=== PATIENT | female | born 1985 | race Caucasian/White ===

== ENCOUNTER 2018-06-02 11:22 | Inpatient (IN) ==
[2018-06-02] MEDS ORDERED: Gadobutrol PF 7.5 MMOL/7.5 ML Vial (for RAD) IV.SIG ONE (11:23)
[2018-06-02] MEDS ORDERED: Morphine Sulfate Inj 8 MG/ML Vial IV.PUSH ONE (12:03)
[2018-06-02] MEDS ORDERED: Morphine Inj 4 MG/ML Vial IV.PUSH ONE (12:15)
[2018-06-02] MEDS ORDERED: Sod Chloride 0.9% Inj 1,000 ML IV.SIG SCH ×3 (12:15→13:15)
[2018-06-02] MEDS ORDERED: Ketorolac Inj 30 MG/ML (IVP) Vial IV.PUSH ONE (12:16)
--- NOTE | 2018-06-02 12:17 | ED ---
HPI General Chief complaint: Back Pain/Injury Stated complaint: back/hip pain Time Seen by Provider: 06/02/18 11:54 Source: patient Mode of arrival: ambulatory Limitations: no limitations History of Present Illness HPI narrative: 33-year-old female that presents to the ED for evaluation of not feeling well. Per patient she has been having lower abdominal pain and pain to her hips that feels like an ache and coldness as well as to weakness to her lower legs that has been ongoing for 3 days. 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 She does a lot of heavy lifting. She does state that she has a history of substance abuse but does not do IV drugs. Per patient she has been using Percocet and marijuana. She took some Percocet to help alleviate the pain with some relief but she continues to have symptoms. Per patient today she started having chills and sweats. She was concerned because she is has a little difficulty walking secondary to discomfort to her lower back. She does not know if this is a kidney infection or this is something related to her back. She denies ever having surgeries to her back. No injuries to her back. No history of sepsis or MRSA. Denies again any IV drug abuse although she does use drugs. No chest pain or shortness of breath. No cough or runny nose. No bowel movement issues. Pain per patient is 8 out of 10. Related Data Home Medications Medication Instructions Recorded Confirmed No Known Home Medications 06/02/18 06/02/18 Allergies Allergy/AdvReac Type Severity Reaction Status Date / Time No Known Allergies Allergy Verified 06/02/18 11:46 Review of Systems ROS: all other systems reviewed are negative [facility] Medical History Medical History No pertinent past medical history (Acute) No significant past surgical history (Acute) Family History Family History Other Osteoarthritis Social History Social History Substance History: Active Abuse Second Hand Smoke Exposure: Yes Smoking Status: Current every day smoker Tobacco Type: Cigarettes How Often Do You Have a Drink Containing Alcohol: Monthly or less Recent Travel in [facility] within the Last 8 Weeks: No Recent Out of Country Travel within the Last 8 Weeks: No Substance Abuse Detail Marijuana: Substance Use Status: Active Route Used Substance Abuse: By Mouth Reason for Use: Calm Down Immunization History Tetanus Immunization: >5 Years Exam Narrative Exam Narrative: GENERAL: well appearing in some discomfort SKIN: Focused skin assessment warm/dry. HEAD: Atraumatic. Normocephalic. EYES: Pupils equal and round. No scleral icterus. No injection or drainage. ENT: No nasal bleeding or discharge. Mucous membranes pink and moist. Tongue is midline. No uvula deviation. NECK: Trachea midline. No JVD. CARDIOVASCULAR: Regular rate and rhythm. No murmur appreciated. RESPIRATORY: No accessory muscle use. Clear to auscultation. Breath sounds equal bilaterally. GASTROINTESTINAL: Abdomen soft, non-tender, nondistended. Hepatic and splenic margins not palpable. MUSCULOSKELETAL: No obvious deformities. No clubbing. No cyanosis. No edema. Full ROm of the upper and lower extremities bilaterally. 2+ pulses. has an erythematous rash on the lower legs, following the veins. Pain with any ROM of the lower back. No thoracic or cervical spine tenderness. Some lumbar spine tenderness to palpation. NEUROLOGICAL: Awake and alert. No obvious cranial nerve deficits. Motor grossly within normal limits. Normal speech. PSYCHIATRIC: Appropriate mood and affect; insight and judgment normal. Course Initial Documented Vital Signs Temperature 99.8 F H 06/02/18 11:32 Pulse Rate 122 H 06/02/18 11:32 Respiratory Rate 24 06/02/18 11:32 Blood Pressure 164/98 H 06/02/18 11:32 Pulse Oximetry 100 06/02/18 11:32 Last Documented Vital Signs Temperature 98.6 F 06/02/18 15:00 Pulse Rate 108 H 06/02/18 15:00 Respiratory Rate 20 06/02/18 15:00 Blood Pressure 130/81 06/02/18 15:00 Pulse Oximetry 99 06/02/18 15:00 Medical Decision Making [facility] Narrative Medical decision making narrative: 33-year-old female that presents to the ED for evaluation of weakness and lower leg pain. Patient was properly examined and was found to have signs and symptoms consistent with appears to be possible osteomyelitis. Patient has a history of drug use but denies any other drug abuse. She is tachycardic and she does have a slight fever. She does not appear to be weak on her legs but she does have a lot of pain in her lower back. The recommend MRI and blood work. Patient was given pain medication IV as well as fluids. Patient was started on sepsis protocol. Case discussed with my attending agrees with plan. Labs and imaging showed no sign of osteomyelitis although she does have some herniated disc. However CT scan did show what appears to be pyelonephritis and significant UTI as well as what appears to be sepsis secondary to pyelonephritis. Condition at this time is for admission for further evaluation and treatment. My attending herself already had started the patient on vancomycin and Zosyn to cover for possible osteo-. Patient agrees with admission. Case discussed with my attending Dr. Gonzalez who agrees to admission. Case discussed with Dr. Lundy who agrees admission to his service. Medical Screen Exam Complete: Yes Emergency Medical Condition: Yes Differential Diagnosis Differential Diagnosis: Sepsis vs osteomyelitis vs pylonephritis vs UTI vs bacteremia Medical Records Medical records reviewed: Yes I reviewed the patient's medical records. Lab Data Lab results reviewed: Yes I reviewed the patient's lab results. Result diagrams: 06/02/18 12:55 06/02/18 12:55 POC Results POC Urine Results Negative Lab Results 06/02/18 06/02/18 06/02/18 Range/Units 12:25 12:33 12:55 WBC (4.0-11.0) th/mm3 RBC (4.00-5.30) mil/mm3 Hgb (11.6-15.3) gm/dL Hct (35.0-46.0) % MCV (80.0-100.0) fL MCH (27.0-34.0) pg MCHC (32.0-36.0) % RDW (11.6-17.2) % Plt Count (150-450) th/mm3 MPV (7.0-11.0) fL Prelim Diff (Auto) Neut % (Auto) (16.0-70.0) % Lymph % (Auto) (9.0-44.0) % Wood % (Auto) (0.0-8.0) % Eos % (Auto) (0.0-4.0) % Baso % (Auto) (0.0-2.0) % Neut # (Auto) (1.8-7.7) th/mm3 Lymph # (Auto) (1.0-4.8) th/mm3 Wood # (Auto) (0.0-0.9) th/mm3 Eos # (Auto) (0.0-0.4) th/mm3 Baso # (Auto) (0.0-0.2) th/mm3 WBC Differential Seg Neuts % (Manual) (16-70) % Band Neuts % (Manual) (0-6) % Lymphocytes % (Manual) (9-44) % Monocytes % (Manual) (0-8) % Abs Neuts (Manual) (1.8-7.7) th/mm3 Differential Comment Platelet Estimate (Normal) Platelet Morphology (Normal) Sodium (136-145) meq/L Potassium (3.5-5.1) meq/L Chloride (98-107) meq/L Carbon Dioxide (21.0-32.0) meq/L Anion Gap (5-15) meq/L BUN (7-18) mg/dL Creatinine (0.50-1.00) mg/dL Estimated GFR (>89) mL/min POC Glucose 138 H (68-110) mg/dl Random Glucose (74-106) mg/dL Lactic Acid (0.4-2.0) mmol/L Calcium (8.5-10.1) mg/dL Total Bilirubin (0.2-1.0) mg/dL AST (15-37) U/L ALT (10-53) U/L Alkaline Phosphatase (45-117) U/L Total Protein (6.4-8.2) g/dL Albumin (3.4-5.0) g/dL Lipase 65 L (73-393) U/L Urine Color Yellow (Yellw/Straw) Urine Clarity Hazy H (Clear) Urine pH 6.0 (5.0-8.5) Ur Specific [place] 1.013 (1.002-1.035) Urine Protein 30 H (Neg-Trace) mg/dL Urine Glucose (UA) Negative (Negative) mg/dL Urine Ketones Negative (Negative) mg/dL Urine Occult Blood Moderate H (Negative) Urine Nitrate Positive H (Negative) Urine Bilirubin Negative (Negative) Urine Urobilinogen Less than 2 (Less than 2) mg/dL Ur Leukocyte Esterase Moderate H (Negative) Urine RBC 2 (0-3) /hpf Urine WBC 25 H (0-5) /hpf Urine WBC Clumps Rare H (None) Ur Squamous Epith Cells 4 (0-5) /hpf Amorphous Sediment Rare H (None) /hpf Urine Bacteria Moderate H (None) /hpf Urine Mucus Few H (Occasional) /lpf Micro UA Comment Culture indicated Ur Microscopic Review Not Reportable Urine Culture Comments Culture indicated 06/02/18 06/02/18 06/02/18 Range/Units 12:55 12:55 12:55 WBC 26.5 H (4.0-11.0) th/mm3 RBC 4.08 (4.00-5.30) mil/mm3 Hgb 11.5 L (11.6-15.3) gm/dL Hct 35.1 (35.0-46.0) % MCV 86.1 (80.0-100.0) fL MCH 28.2 (27.0-34.0) pg MCHC 32.7 (32.0-36.0) % RDW 13.1 (11.6-17.2) % Plt Count 235 (150-450) th/mm3 MPV 8.3 (7.0-11.0) fL Prelim Diff (Auto) Slide review pending Neut % (Auto) 85.7 H (16.0-70.0) % Lymph % (Auto) 5.1 L (9.0-44.0) % Wood % (Auto) 9.0 H (0.0-8.0) % Eos % (Auto) 0.0 (0.0-4.0) % Baso % (Auto) 0.2 (0.0-2.0) % Neut # (Auto) 22.8 H (1.8-7.7) th/mm3 Lymph # (Auto) 1.3 (1.0-4.8) th/mm3 Wood # (Auto) 2.4 H (0.0-0.9) th/mm3 Eos # (Auto) 0.0 (0.0-0.4) th/mm3 Baso # (Auto) 0.0 (0.0-0.2) th/mm3 WBC Differential Manual diff final Seg Neuts % (Manual) 67 (16-70) % Band Neuts % (Manual) 13 H (0-6) % Lymphocytes % (Manual) 13 (9-44) % Monocytes % (Manual) 7 (0-8) % Abs Neuts (Manual) 21.2 H (1.8-7.7) th/mm3 Differential Comment . Platelet Estimate Normal (Normal) Platelet Morphology Normal (Normal) Sodium 132 L (136-145) meq/L Potassium 3.5 (3.5-5.1) meq/L Chloride 99 (98-107) meq/L Carbon Dioxide 24.1 (21.0-32.0) meq/L Anion Gap 9 (5-15) meq/L BUN 7 (7-18) mg/dL Creatinine 0.87 (0.50-1.00) mg/dL Estimated GFR 75 L (>89) mL/min POC Glucose (68-110) mg/dl Random Glucose 113 H (74-106) mg/dL Lactic Acid 1.1 (0.4-2.0) mmol/L Calcium 8.6 (8.5-10.1) mg/dL Total Bilirubin 0.4 (0.2-1.0) mg/dL AST 9 L (15-37) U/L ALT 14 (10-53) U/L Alkaline Phosphatase 81 (45-117) U/L Total Protein 7.4 (6.4-8.2) g/dL Albumin 2.9 L (3.4-5.0) g/dL Lipase (73-393) U/L Urine Color (Yellw/Straw) Urine Clarity (Clear) Urine pH (5.0-8.5) Ur Specific [place] (1.002-1.035) Urine Protein (Neg-Trace) mg/dL Urine Glucose (UA) (Negative) mg/dL Urine Ketones (Negative) mg/dL Urine Occult Blood (Negative) Urine Nitrate (Negative) Urine Bilirubin (Negative) Urine Urobilinogen (Less than 2) mg/dL Ur Leukocyte Esterase (Negative) Urine RBC (0-3) /hpf Urine WBC (0-5) /hpf Urine WBC Clumps (None) Ur Squamous Epith Cells (0-5) /hpf Amorphous Sediment (None) /hpf Urine Bacteria (None) /hpf Urine Mucus (Occasional) /lpf Micro UA Comment Ur Microscopic Review Urine Culture Comments Imaging Data Attestation: I personally reviewed and interpreted this imaging study as follows : Radiologist's impression: Chest X-Ray 06/02/18 12:04 CONCLUSION: 1. No acute cardiopulmonary disease. Lumbar Spine MRI 06/02/18 12:05 CONCLUSION: 1. Broad-based left paracentral disc protrusion at L4-5 effacing the left lateral recess with disc abutting the descending left L5 nerve root. 2. Degenerative disc disease at L5-S1 without significant central canal or neural foraminal stenosis. Abdomen/Pelvis CT 06/02/18 12:08 CONCLUSION: 1. Heterogeneous right-sided parenchymal enhancement with prominent perinephric stranding most consistent with pyelonephritis. No radiopaque renal calculi or hydronephrosis. Clinical and laboratory correlation is recommended. Discharge Plan Discharge Disposition Patient Disposition: 30 Still Patient Discharge Details Diagnosis: Pyelonephritis, Sepsis, Urinary tract infection Physicians Team ED Provider: Traci Gonzalez ED Midlevel Provider: Theodore Marie Primary Care Provider: UNKNOWN, Attending Provider: Rich Lundy Status ED Status: Admitted Patient
--- NOTE | 2018-06-02 12:21 | XR ---
EXAM DATE: 06/02/2018 12:04 PM EDT AGE/SEX: 33 years / Female INDICATIONS: Fever with back pain. CLINICAL DATA: This is the patient's initial encounter. Patient reports that signs and symptoms have been present for 3 days and indicates a pain score of 5/10. MEDICAL/SURGICAL HISTORY: . Smoker. None. COMPARISON: No prior exams available for comparison. FINDINGS: A single AP view of the chest demonstrates the lungs to be symmetrically aerated without evidence of mass, infiltrate or effusion. The cardiomediastinal contours are unremarkable. Osseous structures a re intact. CONCLUSION: 1. No acute cardiopulmonary disease. Electronically signed by: Bryant Valdes MD 06/02/2018 12:19 PM EDT
[2018-06-02 13:08] LABS: Baso % (Auto) 0.2 % (0.0-2.0); Hematocrit 35.1 % (35.0-46.0); Hemoglobin 11.5 gm/dL (11.6-15.3); Lymph # (Auto) 1.3 th/mm3 (1.0-4.8); Lymph % (Auto) 5.1 % (9.0-44.0); Mean Corpuscular HGB Conc 32.7 % (32.0-36.0); Mean Corpuscular Hemoglobin 28.2 pg (27.0-34.0); Mean Corpuscular Volume 86.1 fL (80.0-100.0); Mean Platelet Volume 8.3 fL (7.0-11.0); Mono # (Auto) 2.4 th/mm3 (0.0-0.9); Neut # (Auto) 22.8 th/mm3 (1.8-7.7); Neut % (Auto) 85.7 % (16.0-70.0); Platelet Count 235 th/mm3 (150-450); Red Blood Count 4.08 mil/mm3 (4.00-5.30); Red Cell Distribution Width 13.1 % (11.6-17.2); White Blood Count 26.5 th/mm3 (4.0-11.0)
[2018-06-02] MEDS ORDERED: Piperacil/Tazo 4.5 GM Premix 4.5 GM/100 ML BAG IV.SIG STA (13:13)
[2018-06-02] MEDS ORDERED: Vancomycin Inj 1,000 MG in Sodium Chlor 0.9% Inj 250 ML IV.SIG STA (13:13)
[2018-06-02 13:16] LABS: Amorphous Sediment,Urine Rare /hpf; Bacteria,Urine Moderate /hpf; Bilirubin,Urine Negative (Negative); Clarity,Urine Hazy (Clear); Color,Urine Yellow (Yellw/Straw); Glucose,Urine (UA) Negative (Negative); Leukocyte Esterase,Urine Moderate (Negative); Mucus,Urine Few /lpf (Occasional); Nitrite,Urine Positive (Negative); Specific Gravity,Urine 1.013 (1.002-1.035); Squamous Epithelial Cell,Urine 4 /hpf (0-5)
[2018-06-02 13:34] LABS: Lymphocytes 13 % (9-44); Monocytes 7 % (0-8)
[2018-06-02 13:35] LABS: Platelet Estimate Normal (Normal); Platelet Morphology Normal (Normal)
[2018-06-02 14:08] LABS: Albumin 2.9 g/dL (3.4-5.0); Anion Gap 9 meq/L (5-15); Aspartate Aminotransferase 9 U/L (15-37); Blood Urea Nitrogen 7 mg/dL (7-18); Calcium 8.6 mg/dL (8.5-10.1); Carbon Dioxide 24.1 meq/L (21.0-32.0); Chloride 99 meq/L (98-107); Glomerular Filtration Rate 75 mL/min (>89); Glucose,Random 113 mg/dL (74-106); Potassium 3.5 meq/L (3.5-5.1); Sodium 132 meq/L (136-145)
[2018-06-02 14:09] LABS: Alanine Aminotransferase 14 U/L (10-53)
[2018-06-02 14:11] LABS: Alkaline Phosphatase 81 U/L (45-117); Total Protein 7.4 g/dL (6.4-8.2)
--- NOTE | 2018-06-02 15:00 | MR ---
EXAM DATE: 06/02/2018 2:12 PM EDT AGE/SEX: 33 years / Female INDICATIONS: . Low back and bilateral hip pain. CLINICAL DATA: This is the patient's initial encounter. Patient reports that signs and symptoms have been present for 1 week and indicates a pain score of 5/10. MEDICAL/SURGICAL HISTORY: None. None. COMPARISON: No prior exams available for comparison. TECHNIQUE: Multiplanar, multisequence MRI examination of the lumbar spine was performed without and with 6 ml Gadavist (gadobutrol) contrast as a single exam dose. FINDINGS: Vertebra: The most caudal-appearing lumbar vertebra is numbered as L5. Vertebral Body heights are in tact. Sagital alignment is maintained. Homogeneous signal. Discs: Disc desiccation at L4-5 and L5-S1 with mild to moderate disc space narrowing at L5-S1. Conus: Normal level and configuration. Paraspinal Soft Tissues: No significantfocal renal abnormalities in the visualized kidneys. Visualize d aorta is non-aneurysmal. No Retroperitoneal adenopathy. T12-L1: The thecal sac has a normal diameter. No evidence of disc bulge or protrusion. The neural foramina are patent bilaterally. L1-L2: The thecal sac has a normal diameter. No evidence of disc bulge or protrusion. The neural foramina are patent bilaterally. L2-L3: The thecal sac has a normal diameter. No evidence of disc bulge or protrusion. The neural foramina are patent bilaterally. L3-L4: The thecal sac has a normal diameter. No evidence of disc bulge or protrusion. The neural foramina are patent bilaterally. L4-L5: Broad-based left paracentral disc protrusion effacing the left lateral recess with disc abut ting the descending left L5 nerve root. Mild caudal left neural foraminal narrowing. L5-S1: Minimal diffuse disc bulge. No central canal or neural foraminal stenosis. CONCLUSION: 1. Broad-based left paracentral disc protrusion at L4-5 effacing the left lateral recess with disc a butting the descending left L5 nerve root. 2. Degenerative disc disease at L5-S1 without significant central canal or neural foraminal stenosis . Electronically signed by: Bryant Valdes MD 06/02/2018 2:59 PM EDT
--- NOTE | 2018-06-02 15:35 | CT ---
EXAM DATE: 06/02/2018 2:15 PM EDT AGE/SEX: 33 years / Female INDICATIONS: Lower abdomen pain today. CLINICAL DATA: This is the patient's initial encounter. Patient reports that signs and symptoms have been present for 1 day and indicates a pain score of 7/10. MEDICAL/SURGICAL HISTORY: None. None. ORAL CONTRAST: No oral contrast ingested. RADIATION DOSE: 6.91 CTDI (mGy) COMPARISON: No prior exams available for comparison. TECHNIQUE: Multiple contiguous axial images were obtained through the abdomen and pelvis following b olus infusion of 85 ml Omnipaque 350 (iohexol) nonionic water-soluble contrast as a single exam dos e. No oral contrast ingested. Using automated exposure control and adjustment of the mA and/or kV ac cording to patient size, radiation dose was kept as low as reasonably achievable to obtain optimal di agnostic quality images. DICOM format image data is available electronically for review and comparis on. FINDINGS: LOWER LUNGS: The visualized lower lungs are clear. LIVER: Subtle decreased density adjacent to falciform ligament likely reflecting focal fat. Liver ot herwise is unremarkable without intrahepatic ductal dilatation or significant focal mass. SPLEEN: Homogeneous density without enlargement. PANCREAS: Unremarkable without mass or calcification. KIDNEYS: Prominent perinephric stranding on the right with slight heterogeneous enhancement of the r ight renal parenchyma. There is no hydronephrosis or radiopaque renal calculi. Left kidney appears un remarkable. ADRENAL GLANDS: Unremarkable. AORTA: Liz-aneurysmal. BOWEL/MESENTERY: The bowel loops are grossly unremarkable. The cecum and sigmoid colon have a milton l configuration. Appendix is not directly visualized. No free air or drainable fluid collections. ABDOMINAL WALL: Intact. RETROPERITONEUM: No evidence of adenopathy in the retrocrural, para-aortic, or deep pelvic regions. BLADDER: Contours are smooth. REPRODUCTIVE: No abnormal masses or calcifications seen. BONY STRUCTURES: Unremarkable. CONCLUSION: 1. Heterogeneous right-sided parenchymal enhancement with prominent perinephric stranding most consi stent with pyelonephritis. No radiopaque renal calculi or hydronephrosis. Clinical and laboratory cor relation is recommended. Electronically signed by: Bryant Valdes MD 06/02/2018 3:33 PM EDT
--- NOTE | 2018-06-02 16:26 | P.HPIM ---
History of Present Illness Primary Care Physician: UNKNOWN History of Present Illness: Mrs. Steiner is a 33-year-old female. She has a past history of urinary tract infection approximately 1 year ago but says she does not have problems with recurrent urinary tract infections. She came in the hospital secondary to back pain and fever. Workup shows that she has a pyelonephritis of the right kidney. Pyelonephritis is evident on CT scan. Tachycardia, leukocytosis, and pyelonephritis meet criteria for sepsis in this patient. She is also been having fevers at home. No lactic acidosis. Pain is controlled when seen in the ER. No nausea. No diarrhea. No chest pain. No shortness of breath or cough. - Diagnosis (1) Pyelonephritis (2) Sepsis (3) Urinary tract infection Inpatient Certification: I certify that the inpatient services were ordered in accordance with Medicare regulations governing the order. This includes certification that hospital inpatient services are reasonable and necessary and in the case of services not specified as inpatient-only under 42 CFR 419.22(n), that they are appropriately provided as inpatient services in accordance to with the 2-midnight benchmark under 43 CFR 412.3(e) Estimated Total Length of Stay (Days): 3 Plans for Post Hospital Care: Home Review of Systems Constitutional: fevers, chills, no night sweats, fatigue, no weakness Eyes: No eye pain, no blurry vision, no loss of vision ENT: No sore throat, no ear pain, no rhinorrhea Cardiovascular: No chest pain, no tachycardia, no palpitations, no shortness of breath, no syncope Respiratory: No wheezing, no cough, no shortness of breath Gastrointestinal: No abdominal pain, no black tarry stools, no bright red blood per rectum, no vomiting, no diarrhea Musculoskeletal: No joint pain, no muscle cramps, no stiffness, back pain Integumentary: No rash, no ulcers, no drainage Neurologic: No sensory loss, no loss of motor function, no dizziness Psychiatric: No behavioral changes, no hallucinations, no suicidal ideations [facility] - History History Provided By: Patient - Medical History Medical History: Medical History (Last Reviewed 06/02/18 @ 12:17 by JULIÁN De La Paz) No pertinent past medical history No significant past surgical history - Family History Family History: Family History (Last Updated 06/02/18 @ 16:22 by Rich Lundy MD) Other Osteoarthritis - Tobacco History Second Hand Smoke Exposure: Yes Tobacco Use In Past 30 Days: Yes Smoking Status: Current every day smoker Tobacco Type: Cigarettes - Alcohol History How Often Do You Have a Drink Containing Alcohol: Monthly or less - Substance Use History Substance History: Active Abuse - Substance Use Type Marijuana Status: Active Route Used: By Mouth Reason for Use: Calm Down - Travel History Recent Travel in the [place] Within the Last 8 Weeks: No Recent Travel Out of the Country Within the Last 8 Weeks: No - Immunization History Tetanus Immunization: >5 Years Medications and Allergies Active Medications: Active Medications Hydrocodone Bitart/Acetaminophen (Gill 10/325) 1 tab PO Q4H PRN PRN Reason: Pain 7 to 10 Hydrocodone Bitart/Acetaminophen ([place]ill 5/325) 1 tab PO Q4H PRN PRN Reason: Pain 3 to 6 Al Hydroxide/Mg Hydroxide (Milk Of Magnesia Liq) 30 ml PO Q12H PRN PRN Reason: Mild Constipation Heparin Sodium (Porcine) (Heparin Inj) 5,000 units SQ Q12HR MIKE Sodium Chloride (Ns Inj) 1,000 mls @ 0 mls/hr IV.SIG .Q0M MIKE Last Infusion: 06/02/18 13:32 Dose: Infused Sodium Chloride (Ns Inj) 1,000 mls @ 0 mls/hr IV.SIG .Q0M MIKE Last Infusion: 06/02/18 13:31 Dose: Infused Sodium Chloride (Ns Inj) 1,000 mls @ 0 mls/hr IV.SIG BOLUS MIKE Sodium Chloride (Ns Inj) 1,000 mls @ 100 mls/hr IV.CONT .Q10H MIKE Lactobacillus Acidophilus (Lactinex) 1 tab PO TID MIKE Allergies Allergy/AdvReac Type Severity Reaction Status Date / Time No Known Allergies Allergy Verified 06/02/18 11:46 Home Medications Medication Instructions Recorded Confirmed Type No Known Home Medications 06/02/18 06/02/18 History Exam Vital signs: Vital Signs 06/02/18 11:32 06/02/18 12:04 06/02/18 12:25 Temperature 99.8 F H Pulse Rate 122 H 106 H Respiratory Rate 24 4 L Blood Pressure 164/98 H Pulse Oximetry 100 98 06/02/18 13:00 06/02/18 13:25 06/02/18 15:00 Temperature 99.1 F 98.6 F Pulse Rate 107 H 108 H Respiratory Rate 17 20 20 Blood Pressure 124/72 130/81 Pulse Oximetry 98 99 Intake & Output 06/01/18 06/02/18 06/02/18 18:59 06:59 18:59 Intake Total 2350 / 2350 Balance 2350 / 2350 Weight 65.771 kg Intake: IV 2350 / 2350 Zosyn 4.5 GM Premix 4.5 gm In 100 / 100 100 ml @ 200 mls/hr IV.SIG STAT STA Rx#:[id number] NS Inj 1,000 ML @ Wide Open IV. 1999 SIG .Q0M MIKE Rx#:[id number] Vancomycin Inj 1,000 MG In NS 250 / 250 Inj 250 ML @ 250 mls/hr IV.SIG STAT STA Rx#:[id number] Narrative: GENERAL: NAD, A&Ox3 HEAD: Normocephalic. NECK: Supple, trachea midline. No lymphadenopathy. EYES: No scleral icterus. No injection or drainage. CARDIOVASCULAR: Regular rate and rhythm without murmurs, gallops, or rubs. RESPIRATORY: Breath sounds equal bilaterally. No accessory muscle use. GASTROINTESTINAL: Abdomen soft, non-tender, nondistended. MUSCULOSKELETAL: No cyanosis, or edema. CVA tenderness bilaterally greater at the right SKIN: Warm and dry. NEURO: No focal neurological deficits. Results - Labs CBC & Chem 7: 06/02/18 12:55 06/02/18 12:55 Labs: Short CBC 06/02/18 Range/Units 12:55 WBC 26.5 H (4.0-11.0) th/mm3 Hgb 11.5 L (11.6-15.3) gm/dL Hct 35.1 (35.0-46.0) % Plt Count 235 (150-450) th/mm3 BMP 06/02/18 12:55 Sodium 132 L Potassium 3.5 Chloride 99 Carbon Dioxide 24.1 BUN 7 Creatinine 0.87 Calcium 8.6 Liver Function 06/02/18 Range/Units 12:55 Total Bilirubin 0.4 (0.2-1.0) mg/dL AST 9 L (15-37) U/L ALT 14 (10-53) U/L Alkaline Phosphatase 81 (45-117) U/L Albumin 2.9 L (3.4-5.0) g/dL Urine 06/02/18 Range/Units 12:25 Urine Color Yellow (Yellw/Straw) Urine Clarity Hazy H (Clear) Urine pH 6.0 (5.0-8.5) Ur Specific [place] 1.013 (1.002-1.035) Urine Protein 30 H (Neg-Trace) mg/dL Urine Glucose (UA) Negative (Negative) mg/dL - Imaging Impressions Chest X-Ray 06/02/18 12:04 CONCLUSION: 1. No acute cardiopulmonary disease. Lumbar Spine MRI 06/02/18 12:05 CONCLUSION: 1. Broad-based left paracentral disc protrusion at L4-5 effacing the left lateral recess with disc abutting the descending left L5 nerve root. 2. Degenerative disc disease at L5-S1 without significant central canal or neural foraminal stenosis. Abdomen/Pelvis CT 06/02/18 12:08 CONCLUSION: 1. Heterogeneous right-sided parenchymal enhancement with prominent perinephric stranding most consistent with pyelonephritis. No radiopaque renal calculi or hydronephrosis. Clinical and laboratory correlation is recommended. Caprini VTE Risk Assessment Caprini VTE Risk Assessment: No/Low Risk (score <= 1) Caprini Risk Assessment Model: Point Value = 1 Point Value = 2 Point Value = 3 Point Value = 5 Age 41-60 Minor surgery BMI > 25 kg/m2 Swollen legs Varicose veins or History of unexplained or recurrent spontaneous Oral contraceptives or hormone replacement Sepsis (< 1 month) Serious lung disease, including pneumonia (< 1 month) Abnormal pulmonary function Acute myocardial infarction Congestive heart failure (< 1 month) History of inflammatory bowel disease Medical patient at bed rest Age 61-74 Arthroscopic surgery Major open surgery (> 45 min) Laparoscopic surgery (> 45 min) Malignancy Confined to bed (> 72 hours) Immobilizing plaster cast Central venous access Age >= 75 History of VTE Family history of VTE Factor V Leiden Prothrombin [id number] Lupus anticoagulant Anticardiolipin antibodies Elevated serum homocysteine Heparin-induced thrombocytopenia Other congenital or acquired thrombophilia Stroke (< 1 month) Elective arthroplasty Hip, pelvis, or leg fracture Acute spinal cord injury (< 1 month) Prophylaxis Regimen: Total Risk Factor Score Risk Level Prophylaxis Regimen 0-1 Low Early ambulation 2 Moderate Order ONE of the following: *Sequential Compression Device (SCD) *Heparin 5000 units SQ BID 3-4 Higher Order ONE of the following medications: *Heparin 5000 units SQ TID *Enoxaparin/Lovenox 40 mg SQ daily (WT < 150 kg, CrCl > 30 mL/min) *Enoxaparin/Lovenox 30 mg SQ daily (WT < 150 kg, CrCl > 10-29 mL/min) *Enoxaparin/Lovenox 30 mg SQ BID (WT < 150 kg, CrCl > 30 mL/min) AND/OR *Sequential Compression Device (SCD) 5 or more Highest Order ONE of the following medications: *Heparin 5000 units SQ TID (Preferred with Epidurals) *Enoxaparin/Lovenox 40 mg SQ daily (WT < 150 kg, CrCl > 30 mL/min) *Enoxaparin/Lovenox 30 mg SQ daily (WT < 150 kg, CrCl > 10-29 mL/min) *Enoxaparin/Lovenox 30 mg SQ BID (WT < 150 kg, CrCl > 30 mL/min) AND *Sequential Compression Device (SCD) Assessment and Plan - Assessment (1) Pyelonephritis Code(s): N12 - Tubulo-interstitial nephritis, not specified as acute or chronic Status: Acute (2) Sepsis Code(s): A41.9 - Sepsis, unspecified organism Status: Acute (3) Urinary tract infection Code(s): N39.0 - Urinary tract infection, site not specified Status: Acute - Plan 33-year-old female admitted secondary to pyelonephritis and sepsis Sepsis Leukocytosis Fevers IV hydration Follow clinically Follow on concrete mixer vital signs closely Treat infection as below Monitor for resolution Follow CBC Acute pyelonephritis Urinary tract infection Rocephin Probiotics As needed pain treatments Follow urine cultures Monitor renal function Monitor CBC Monitor for improvement in symptoms DVT prophylaxis Heparin
[2018-06-02] MEDS: Sod Chloride 0.9% Inj 1,000 ML IV.CONT SCH (16:41)
[2018-06-02] MEDS: Lactobacillus Acidophilus/L. Spores Tablet PO SCH (17:07)
[2018-06-02] MEDS ORDERED: Influenza (Quadrivalent) Vaccine 0.5 ML Syringe IM ONE (20:00)
[2018-06-02] MEDS: Heparin - SQ 10,000 UNITS/ML Vial SQ SCH (21:12)
[2018-06-03] MEDS: Sod Chloride 0.9% Inj 1,000 ML IV.CONT SCH ×2 (04:12→14:26)
[2018-06-03 05:31] LABS: Baso % (Auto) 0.1 % (0.0-2.0); Eos % (Auto) 0.2 % (0.0-4.0); Hematocrit 34.9 % (35.0-46.0); Hemoglobin 11.7 gm/dL (11.6-15.3); Lymph # (Auto) 2.3 th/mm3 (1.0-4.8); Mean Corpuscular HGB Conc 33.6 % (32.0-36.0); Mean Corpuscular Hemoglobin 29.1 pg (27.0-34.0); Mean Corpuscular Volume 86.6 fL (80.0-100.0); Mean Platelet Volume 8.8 fL (7.0-11.0); Mono # (Auto) 1.4 th/mm3 (0.0-0.9); Mono % (Auto) 6.6 % (0.0-8.0); Neut # (Auto) 17.1 th/mm3 (1.8-7.7); Neut % (Auto) 82.1 % (16.0-70.0); Platelet Count 237 th/mm3 (150-450); Red Blood Count 4.04 mil/mm3 (4.00-5.30); Red Cell Distribution Width 13.2 % (11.6-17.2); White Blood Count 20.8 th/mm3 (4.0-11.0)
[2018-06-03 05:50] VITALS: O2SAT 100
[2018-06-03 06:10] LABS: Alanine Aminotransferase 34 U/L (10-53); Alkaline Phosphatase 92 U/L (45-117); Anion Gap 10 meq/L (5-15); Aspartate Aminotransferase 37 U/L (15-37); Blood Urea Nitrogen 9 mg/dL (7-18); Calcium 8.3 mg/dL (8.5-10.1); Carbon Dioxide 21.8 meq/L (21.0-32.0); Chloride 105 meq/L (98-107); Glomerular Filtration Rate 69 mL/min (>89); Glucose,Random 84 mg/dL (74-106); Potassium 3.7 meq/L (3.5-5.1); Sodium 137 meq/L (136-145); Total Protein 7.9 g/dL (6.4-8.2)
[2018-06-03] MEDS: Heparin - SQ 10,000 UNITS/ML Vial SQ SCH ×2 (08:11→21:04)
[2018-06-03] MEDS: Lactobacillus Acidophilus/L. Spores Tablet PO SCH ×3 (08:11→17:35)
--- NOTE | 2018-06-03 12:14 | P.PNIM ---
Subjective Interval history: Reports her pain has almost resolved now urinating well. No further fevers and chills feels a whole lot better. Physical Exam Vital signs: Vital Signs 06/02/18 12:25 06/02/18 13:00 06/02/18 13:25 Temperature 99.1 F Pulse Rate 107 H Respiratory Rate 4 L 17 20 Blood Pressure 124/72 Pulse Oximetry 98 06/02/18 15:00 06/02/18 16:30 06/02/18 17:48 Temperature 98.6 F 98.3 F Pulse Rate 108 H 98 H 108 H Respiratory Rate 20 16 Blood Pressure 130/81 135/78 Pulse Oximetry 99 99 06/02/18 20:00 06/03/18 00:00 06/03/18 02:52 Temperature 100.1 F H 98.8 F Pulse Rate 109 H 104 H 101 H Respiratory Rate 22 18 Blood Pressure 127/69 117/67 Pulse Oximetry 98 99 06/03/18 04:00 06/03/18 08:00 06/03/18 12:00 Temperature 99.7 F H 98.4 F 99.9 F H Pulse Rate 106 H 110 H 95 H Respiratory Rate 18 18 14 Blood Pressure 141/81 H 133/74 155/93 H Pulse Oximetry 100 100 100 Intake & Output 06/02/18 06/03/18 06/03/18 18:59 06:59 18:59 Intake Total 3690 / 3690 1959 Balance 3690 / 3690 1959 Weight 65.77 kg Intake: IV 3450 / 3450 1000 / 1000 NS Inj 1,000 ML @ 100 mls/hr IV 1000 / 1000 .CONT .Q10H MIKE Rx#:[id number] Zosyn 4.5 GM Premix 4.5 gm In 100 / 100 100 ml @ 200 mls/hr IV.SIG STAT STA Rx#:[id number] NS Inj 1,000 ML @ Wide Open IV. 3000 / 3000 SIG BOLUS MIKE Rx#:[id number] Vancomycin Inj 1,000 MG In NS 250 / 250 Inj 250 ML @ 250 mls/hr IV.SIG STAT STA Rx#:[id number] Rocephin Inj 1,000 MG In NS Inj 100 / 100 100 ML @ 200 mls/hr IV.SIG Q24H MIKE Rx#:[id number] Oral 240 / 240 960 / 960 Other: # Voids 1 4 Date of Last Bowel Movement 06/01/18 06/01/18 06/01/18 # Bowel Movements 0 Weight On Admission 65.77 kg Narrative: GENERAL: This is a well-nourished, well-developed patient, in no apparent distress. CARDIOVASCULAR: Regular rate and rhythm without murmurs, gallops, or rubs. RESPIRATORY: Clear to auscultation. Breath sounds equal bilaterally. No wheezes , rales, or rhonchi. GASTROINTESTINAL: Abdomen soft, non-tender, nondistended. Normal active bowel sounds, no CVA tenderness MUSCULOSKELETAL: Extremities without clubbing, cyanosis, or edema. NEURO: Alert & Oriented x4 to person, place, time, situation. Moves all ext x4 Results - Labs CBC & Chem 7: 06/03/18 04:49 06/03/18 04:49 Laboratory Results - last 24 hr 06/02/18 06/02/18 06/02/18 12:25 12:33 12:55 WBC RBC Hgb Hct MCV MCH MCHC RDW Plt Count MPV Prelim Diff (Auto) Neut % (Auto) Lymph % (Auto) [place] % (Auto) Eos % (Auto) Baso % (Auto) Neut # (Auto) Lymph # (Auto) [place] # (Auto) Eos # (Auto) Baso # (Auto) WBC Differential Seg Neuts % (Manual) Band Neuts % (Manual) Lymphocytes % (Manual) Monocytes % (Manual) Abs Neuts (Manual) Differential Comment Platelet Estimate Platelet Morphology Sodium Potassium Chloride Carbon Dioxide Anion Gap BUN Creatinine Estimated GFR POC Glucose 138 H Random Glucose Lactic Acid Calcium Total Bilirubin AST ALT Alkaline Phosphatase Total Protein Albumin Lipase 65 L Urine Color Yellow Urine Clarity Hazy H Urine pH 6.0 Ur Specific [place] 1.013 Urine Protein 30 H Urine Glucose (UA) Negative Urine Ketones Negative Urine Occult Blood Moderate H Urine Nitrate Positive H Urine Bilirubin Negative Urine Urobilinogen Less than 2 Ur Leukocyte Esterase Moderate H Urine RBC 2 Urine WBC 25 H Urine WBC Clumps Rare H Ur Squamous Epith Cells 4 Amorphous Sediment Rare H Urine Bacteria Moderate H Urine Mucus Few H Micro UA Comment Culture indicated Ur Microscopic Review Not Reportable Urine Culture Comments Culture indicated 06/02/18 06/02/18 06/02/18 12:55 12:55 12:55 WBC 26.5 H RBC 4.08 Hgb 11.5 L Hct 35.1 MCV 86.1 MCH 28.2 MCHC 32.7 RDW 13.1 Plt Count 235 MPV 8.3 Prelim Diff (Auto) Slide review pending Neut % (Auto) 85.7 H Lymph % (Auto) 5.1 L [place] % (Auto) 9.0 H Eos % (Auto) 0.0 Baso % (Auto) 0.2 Neut # (Auto) 22.8 H Lymph # (Auto) 1.3 [place] # (Auto) 2.4 H Eos # (Auto) 0.0 Baso # (Auto) 0.0 WBC Differential Manual diff final Seg Neuts % (Manual) 67 Band Neuts % (Manual) 13 H Lymphocytes % (Manual) 13 Monocytes % (Manual) 7 Abs Neuts (Manual) 21.2 H Differential Comment . Platelet Estimate Normal Platelet Morphology Normal Sodium 132 L Potassium 3.5 Chloride 99 Carbon Dioxide 24.1 Anion Gap 9 BUN 7 Creatinine 0.87 Estimated GFR 75 L POC Glucose Random Glucose 113 H Lactic Acid 1.1 Calcium 8.6 Total Bilirubin 0.4 AST 9 L ALT 14 Alkaline Phosphatase 81 Total Protein 7.4 Albumin 2.9 L Lipase Urine Color Urine Clarity Urine pH Ur Specific [place] Urine Protein Urine Glucose (UA) Urine Ketones Urine Occult Blood Urine Nitrate Urine Bilirubin Urine Urobilinogen Ur Leukocyte Esterase Urine RBC Urine WBC Urine WBC Clumps Ur Squamous Epith Cells Amorphous Sediment Urine Bacteria Urine Mucus Micro UA Comment Ur Microscopic Review Urine Culture Comments 06/03/18 06/03/18 04:49 04:49 WBC 20.8 H RBC 4.04 Hgb 11.7 Hct 34.9 L MCV 86.6 MCH 29.1 MCHC 33.6 RDW 13.2 Plt Count 237 MPV 8.8 Prelim Diff (Auto) Neut % (Auto) 82.1 H Lymph % (Auto) 11.0 [place] % (Auto) 6.6 Eos % (Auto) 0.2 Baso % (Auto) 0.1 Neut # (Auto) 17.1 H Lymph # (Auto) 2.3 [place] # (Auto) 1.4 H Eos # (Auto) 0.0 Baso # (Auto) 0.0 WBC Differential . Seg Neuts % (Manual) Band Neuts % (Manual) Lymphocytes % (Manual) Monocytes % (Manual) Abs Neuts (Manual) Differential Comment Auto diff final Platelet Estimate Platelet Morphology Sodium 137 Potassium 3.7 Chloride 105 Carbon Dioxide 21.8 Anion Gap 10 BUN 9 Creatinine 0.93 Estimated GFR 69 L POC Glucose Random Glucose 84 Lactic Acid Calcium 8.3 L Total Bilirubin 0.2 AST 37 ALT 34 Alkaline Phosphatase 92 Total Protein 7.9 Albumin 3.0 L Lipase Urine Color Urine Clarity Urine pH Ur Specific [place] Urine Protein Urine Glucose (UA) Urine Ketones Urine Occult Blood Urine Nitrate Urine Bilirubin Urine Urobilinogen Ur Leukocyte Esterase Urine RBC Urine WBC Urine WBC Clumps Ur Squamous Epith Cells Amorphous Sediment Urine Bacteria Urine Mucus Micro UA Comment Ur Microscopic Review Urine Culture Comments Microbiology 06/02/18 12:14 Blood - Peripheral Aerobic Blood Culture - Preliminary No growth in 1 day 06/02/18 12:14 Blood - Peripheral Anaerobic Blood Culture - Preliminary No growth in 1 day 06/02/18 12:10 Blood - Peripheral Aerobic Blood Culture - Preliminary No growth in 1 day 06/02/18 12:10 Blood - Peripheral Anaerobic Blood Culture - Preliminary No growth in 1 day - Imaging Impressions Chest X-Ray 06/02/18 12:04 CONCLUSION: 1. No acute cardiopulmonary disease. Lumbar Spine MRI 06/02/18 12:05 CONCLUSION: 1. Broad-based left paracentral disc protrusion at L4-5 effacing the left lateral recess with disc abutting the descending left L5 nerve root. 2. Degenerative disc disease at L5-S1 without significant central canal or neural foraminal stenosis. Abdomen/Pelvis CT 06/02/18 12:08 CONCLUSION: 1. Heterogeneous right-sided parenchymal enhancement with prominent perinephric stranding most consistent with pyelonephritis. No radiopaque renal calculi or hydronephrosis. Clinical and laboratory correlation is recommended. Assessment and Plan - Assessment (1) Pyelonephritis Code(s): N12 - Tubulo-interstitial nephritis, not specified as acute or chronic Status: Acute (2) Sepsis Code(s): A41.9 - Sepsis, unspecified organism Status: Acute (3) Urinary tract infection Code(s): N39.0 - Urinary tract infection, site not specified Status: Acute - Plan 33-year-old female admitted secondary to pyelonephritis and sepsis Sepsis present on admission with leukocytosis and tachycardiaclinically improved and resolving Leukocytosis Fevers Continue with IV fluids and IV antibiotics. Acute pyelonephritis Urinary tract infection IV Rocephin Probiotics As needed pain treatments Follow up with final urine cultures Tobacco usestart nicotine patch DVT prophylaxis Heparin Discharge Planning: Likely discharged home in the morning pending urine cultures. (2) Sepsis Qualifiers: Sepsis type: sepsis due to unspecified organism Qualified Code(s): A41.9 - Sepsis, unspecified organism (3) Urinary tract infection Qualifiers: Urinary tract infection type: acute pyelonephritis Qualified Code(s): N10 - Acute pyelonephritis
--- NOTE | 2018-06-03 14:05 | ECG ---
Date Performed: 06/02/2018 Time Performed: 12:32:57 PTAGE: 33 years EKG: SINUS TACHYCARDIA NONSPECIFIC T-WAVE ABNORMALITY ABNORMAL RHYTHM ECG NO PREVIOUS TRACING DOCTOR: Tello Rico Interpretating Date/Time 06/03/2018 14:04:35
[2018-06-04] MEDS: Sod Chloride 0.9% Inj 1,000 ML IV.CONT SCH ×2 (01:08→08:30)
[2018-06-04 01:21] VITALS: RESP 18
[2018-06-04] MEDS: Heparin - SQ 10,000 UNITS/ML Vial SQ SCH (08:20)
[2018-06-04] MEDS: Lactobacillus Acidophilus/L. Spores Tablet PO SCH (08:20)
[2018-06-04 09:29] VITALS: BP 140/72; PULSE 101; TEMP 98.1
--- NOTE | 2018-06-04 09:54 | P.PN ---
Subjective Interval history: Patient doing well overnight. Patient is tolerating p.o., voiding/stooling well no overnight events per RN. Physical Exam Vital signs: Vital Signs 06/03/18 12:00 06/03/18 16:00 06/03/18 20:00 Temperature 99.9 F H 99.8 F H 99.6 F Pulse Rate 95 H 104 H 103 H Respiratory Rate 14 18 19 Blood Pressure 155/93 H 151/90 H 164/88 H Pulse Oximetry 100 100 100 06/04/18 00:00 06/04/18 08:00 Temperature 98.5 F 98.1 F Pulse Rate 98 H 101 H Respiratory Rate 18 18 Blood Pressure 160/94 H 140/72 Pulse Oximetry 100 100 Intake & Output 06/03/18 06/04/18 06/04/18 18:59 06:59 18:59 Intake Total 1100 / 1100 960 / 960 Balance 1100 / 1100 960 / 960 Intake: IV 1100 / 1100 NS Inj 1,000 ML @ 100 mls/hr IV 1000 / 1000 .CONT .Q10H MIKE Rx#:[id number] Rocephin Inj 1,000 MG In NS Inj 100 / 100 100 ML @ 200 mls/hr IV.SIG Q24H MIKE Rx#:[id number] Oral 960 / 960 Other: # Voids 10 3 Date of Last Bowel Movement 06/01/18 06/01/18 06/01/18 Narrative: GENERAL: This is a well-nourished, female, in no apparent distress. CARDIOVASCULAR: Regular rate and rhythm without murmurs, gallops, or rubs. RESPIRATORY: Clear to auscultation. Breath sounds equal bilaterally. No wheezes , rales, or rhonchi. GASTROINTESTINAL: Abdomen soft, non-tender, nondistended. Normal active bowel sounds, no CVA tenderness MUSCULOSKELETAL: Extremities without clubbing, cyanosis, or edema. NEURO: Alert & Oriented x4 to person, place, time, situation. No focal deficit Results - Labs CBC & Chem 7: 06/03/18 04:49 06/03/18 04:49 Laboratory Results - last 24 hr 06/02/18 12:25 Urine Color Yellow Urine Clarity Hazy H Urine pH 6.0 Ur Specific [place] 1.013 Urine Protein 30 H Urine Glucose (UA) Negative Urine Ketones Negative Urine Occult Blood Moderate H Urine Nitrate Positive H Urine Bilirubin Negative Urine Urobilinogen Less than 2 Ur Leukocyte Esterase Moderate H Urine RBC 2 Urine WBC 25 H Urine WBC Clumps Rare H Ur Squamous Epith Cells 4 Amorphous Sediment Rare H Urine Bacteria Moderate H Urine Mucus Few H Micro UA Comment Culture indicated Urine Culture Comments Culture indicated Microbiology 06/02/18 12:25 Clean Catch Urine Urine Culture - Final Escherichia coli 06/02/18 12:14 Blood - Peripheral Aerobic Blood Culture - Preliminary No growth in 1 day 06/02/18 12:14 Blood - Peripheral Anaerobic Blood Culture - Preliminary No growth in 1 day 06/02/18 12:10 Blood - Peripheral Aerobic Blood Culture - Preliminary No growth in 1 day 06/02/18 12:10 Blood - Peripheral Anaerobic Blood Culture - Preliminary No growth in 1 day Assessment and Plan - Assessment (1) Pyelonephritis Code(s): N12 - Tubulo-interstitial nephritis, not specified as acute or chronic Status: Acute (2) Sepsis Code(s): A41.9 - Sepsis, unspecified organism Status: Resolved (3) Urinary tract infection Code(s): N39.0 - Urinary tract infection, site not specified Status: Acute - Plan 33-year-old F admitted for IP mgmt of Pyelonephritis and sepsis, HD#3 1. Sepsis present on admission with leukocytosis and tachycardiaimproving with txt of Pyelo WBC improving, 20.8 today from 26.5 HR 90-100 Bld Cx Neg X1 day 2. Acute pyelonephritis On IV Rocephin Cont. Probiotics Urine Cx: E. Coli sensitive to Macrobid, will be discharged with prescription to complete 5 days 3. Tobacco use, on Nicotine patch Encourage cessation, risks discussed 4. DVT prophylaxis Cont. Heparin 5. DISPO: Stable for discharge this morning Code Status: full Discussed Condition With: Patient, nurse, housing case manager (2) Sepsis Qualifiers: Sepsis type: sepsis due to unspecified organism Qualified Code(s): A41.9 - Sepsis, unspecified organism (3) Urinary tract infection Qualifiers: Urinary tract infection type: acute pyelonephritis Qualified Code(s): N10 - Acute pyelonephritis
== END 2018-06-04 13:03 | disposition home or self-care (01) ==
LOC: NEPC 11:22 → NEDA 16:09 → N06 17:15
PROVIDERS: ADMIT Family Medicine; ATTEND Family Medicine